=== PATIENT | female | born 1960 | race Caucasian/White ===

== ENCOUNTER → 2018-04-24 13:07 | Outpatient (CLI) | payer OTHER, SELFPAY ==
[2018-04-24 13:51] LABS: Anion Gap 9 (5-15); BUN 14 mg/dL (7-18); BUN/Creat Ratio 14.3 RATIO (10-20); Calcium,Total 9.2 mg/dL (8.5-10.1); Chloride 105 mmol/L (98-107); Cholesterol 238 mg/dL (200); Creatinine, Serum 0.98 mg/dL (0.55-1.02); EST Glomerular Filtration Rate 62 mL/min (>60); Est Glom Filt Rate - Afr Amer 75 mL/min (>60); Glucose 97 mg/dL (74-106); High Density Lipoprotein 49 mg/dL; Potassium 4.2 mmol/L (3.5-5.1); Sodium Level 142 mmol/L (136-145); Triglycerides 224 mg/dL; Very Low Density Lipoprotein 45 mg/dL (5-40)
== END ==
PROVIDERS: Family Provider Family Medicine; PCP Family Medicine; Referring Provider Family Medicine; Visit Provider Family Medicine
DX: Z00.00 Encounter for general adult medical examination without abnormal findings (principal)
CPT/HCPCS: 36415; 80048; 80061

== ENCOUNTER → 2018-06-23 15:48 | Outpatient (CLI) | payer OTHER, SELFPAY ==
[2018-05-09 16:37] VITALS: BMI 32.0
--- NOTE | 2018-06-23 15:49 | BI_ITS ---
MAMMOGRAPHY - BILATERAL SCREENING REASON FOR EXAM: Female, 57 years old. Routine annual screening examination. PERTINENT HISTORY: Non-contributory. TECHNIQUE: Digital bilateral breast mala (3D mammographic acquisition) in the CC and MLO projections. 2-D mediolateral oblique (MLO) and craniocaudad (CC) views of both breasts were obtained. CAD: Full Field Digital Mammography with Computer Added Detection was performed. COMPARISON: Comparison is made with prior examination dated August 04, 2010. FINDINGS: Breast Composition: There are scattered areas of fibroglandular density. There are no dominant masses or suspicious calcifications. Stable benign-appearing bilateral axillary lymph nodes. Stable 4 mm well-defined nodule in the upper lateral portion of the left breast. Correlation with ultrasound is recommended for further evaluation. No other significant abnormalities are identified. There has been no significant change since the prior study. BI/SCREENING MAMM (CAD), BILAT IMPRESSION: Stable bilateral screening mammogram. Ultrasound of the left breast is recommended to assess the 4 mm well-defined nodule in the upper lateral portion of the left breast. ASSESSMENT CATEGORY: BIRADS Category 0: Incomplete. Need additional imaging evaluation. A letter regarding these results will be sent to the patient by the facility within 30 days. Approximately 10% of breast cancers are not detected by mammography. A normal mammogram should not delay biopsy of a clinically suspicious abnormality. [id number] Electronically Signed: Luis Antonio Cochran MD at 12:32 EST Tel [phone], Service support ,
== END ==
PROVIDERS: Family Provider Family Medicine; PCP Family Medicine; Referring Provider Family Medicine; Visit Provider Family Medicine
DX: Z12.31 Encounter for screening mammogram for malignant neoplasm of breast (principal)
CPT/HCPCS: 77063; 77067

== ENCOUNTER → 2018-06-30 13:55 | Outpatient (CLI) | payer OTHER, SELFPAY ==
[2018-05-09 16:37] VITALS: BMI 32.0
--- NOTE | 2018-06-30 13:58 | US_ITS ---
STUDY: ULTRASOUND BREAST - LEFT REASON FOR EXAM: Female, 57 years old. Abnormal screening mammogram. TECHNIQUE: Axial and longitudinal images of the LEFT breast were performed with a high resolution ultrasound transducer. COMPARISON: Comparison is made with prior mammogram dated June 23, 2018. FINDINGS: LEFT Breast: The mammographic abnormality corresponds to a 4 mm x 3 mm x 2 mm cyst at the 2:00 position of the breast at 7 cm from the nipple. US/Breast Limited Unilateral IMPRESSION: The mammographic abnormality corresponds to a 4 mm x 2 mm x 2 mm cyst at the 2:00 position of the breast at 7 cm from the nipple. ASSESSMENT CATEGORY: BIRADS Category 2: Benign. A letter regarding these results will be sent to the patient by the facility within 30 days. Electronically Signed: Luis Antonio Cochran MD at 14:58 EST Tel [phone], Service support ,
--- OUTSIDE RECORDS SUMMARY | 2018-09-02 01:59 | XMS RPT_ITS | Clinical Summary ---
:1960 Author Organization [facility] Address [address] [place] [id number] Phone Care Team Providers Name Role Phone Luke MCBRIDE, Marissa Solis Unavailable Unavailable Conditions or Problems Problem Name Problem Onset Status Entry Provider Comment Standard Annotate Code Date Date Description Diverticulitis 963329381 Active Marissa Solis Diverticulitis (SNOMED 11/27 11/[address]) LAMINATOR PREFORMS Medications Medication Instructions Start Stop Generic Name NDC Provider Date Date CIPROFLOXACIN Take 1 tablet CIPROFLOXACIN 09565927695 Tyler D HCL 750 MG TABS every 12 hours HCL Brayan YANEZ METRONIDAZOLE 1 tablet every / METRONIDAZOLE [id number] Tyler D 500 MG TABS 6 hours Brayan YANEZ EFFEXOR XR as directed / VENLAFAXINE HCL [id number] Marissa N [id number] 20 [id number] Luke LAMINATOR PREFORMS PROTONIX TBEC as directed / PANTOPRAZOLE [id number] Marissa N 20 SODIUM TBEC Luke LAMINATOR PREFORMS B COMPLEX PLUS as directed B COMPLEX-FOLIC [id number] Marissa N TABS 20 ACID Luke LAMINATOR PREFORMS CINNAMON CAPS as directed / CINNAMON CAPS [id number] Marissa N 20 Luke LAMINATOR PREFORMS MAGNESIUM 27 as directed / MAGNESIUM [id number] Marissa N TABS 20 GLUCONATE TABS Luke LAMINATOR PREFORMS Medications Administered No information available. Allergies, Adverse Reactions, Alerts Observed no known allergies at Results Date Name Value Unit Range Flag Description Office Visit: UC: diverticulitis flare MEDS REVIEW Done Documentation of current medications (procedure) FALLRSKASSES No Fall risk assessment SMOK STATUS Never smoker Tobacco use [facility] Plan of Care Type Date Detail Appointment 05:00 PM Tyler YANEZ, [facility], [address], [place], [address], Patient education DIVERTICULITIS Procedures No information available. Vital Signs Date Name Value Unit Description BMI (Body Mass Index) 32.54 kg/m2 Body Mass Index [Ratio] Body Temperature 98.7 [degF] temperature E&M BP Diastolic 80 mm[Hg] blood pressure, diastolic - 8462-4 BP Systolic 138 mm[Hg] blood pressure, systolic - 8480-6 Heart Rate 98 /min pulse rate E&M - 8867-4 Height 66 [in_us] height E&M - 8302-2 O2 % BldC Oximetry 96 % oxygen saturation, oximetry Respiratory Rate 12 /min respiratory rate E&M - 9279-1 Weight Measured 201.6 [lb_av] weight E&M - 3141-9
--- OUTSIDE RECORDS SUMMARY | 2018-09-02 01:59 | XMS RPT_ITS ---
:1960 Author Organization OHIP Care Team Providers Name Role Phone Clarence Kirkpatrick Attending Unavailable Brown, Clarence Referring Unavailable Brown, Clarence Primary Care Unavailable Brown, Clarence Attending Unavailable Brown, Clarence Referring Unavailable Brown, Clarence Primary Care Unavailable Philippe August Attending Unavailable Brown, Clarence Attending Unavailable Brown, Clarence Referring Unavailable Brown, Clarence Attending Unavailable Brown, Clarence Referring Unavailable Brown, Clarence Primary Care Unavailable Eunice العلي Attending Unavailable Brown, Clarence Referring Unavailable PROBLEMS PROBLEMS DATE TYPE CONDITION / CODE ATTENDING STATUS SOURCE 05/09/2018 Unknown J01.10 - Acute Makenna [facility], [facility] unspecified / Repository J01.10(ICD-10) 04/22/2018 Unknown Z00.00 - Clarence Kirkpatrick Active Shai Encounter for [facility] medical Repository examination without abnormal findings / Z00.00(ICD-10) PROCEDURES PROCEDURES No Procedure Records FoundRESULTS RESULTS BREAST LIMITED Observed: 06/30/2018 Status: F Source: SHAI UNILATERAL 1:58 PM [facility] REPOSITORY [facility] Imaging Services [address] [place] [address] Breast Limited Unilateral MR#: [id number] Acct: [id number] Name: TRACIE BATISTA Rep #: [id number] : 1960 F 57 From: Luis Antonio Cochran MD PCP: Clarence Kirkpatrick DO Status: REG CLI Study: Breast Limited Unilateral Date of Exam: 06/30/18 Exam# [id number] Ordering Dr: Clarence Kirkpatrick DO STUDY: ULTRASOUND BREAST - LEFT REASON FOR EXAM: Female, 57 years old. Abnormal screening mammogram. TECHNIQUE: Axial and longitudinal images of the LEFT breast were performed with a high resolution ultrasound transducer. COMPARISON: Comparison is made with prior mammogram dated June 23, 2018. FINDINGS: LEFT Breast: The mammographic abnormality corresponds to a 4 mm x 3 mm x 2 mm cyst at the 2:00 position of the breast at 7 cm from the nipple. US/Breast Limited Unilateral IMPRESSION: The mammographic abnormality corresponds to a 4 mm x 2 mm x 2 mm cyst at the 2:00 position of the breast at 7 cm from the nipple. ASSESSMENT CATEGORY: BIRADS Category 2: Benign. A letter regarding these results will be sent to the patient by the facility within 30 days. Electronically Signed: Luis Antonio Cochran MD at 14:58 EST Tel [phone], Service support , CC: Clarence Kirkpatrick DO [employer] Supervisor: Signed SCREENING MAMM (CAD), Observed: 06/23/2018 Status: F Source: SHAI BILAT 3:[address] [facility] REPOSITORY [facility] Imaging Services [address] [place] [address] SCREENING MAMM (CAD), BILAT MR#: [id number] Acct: [id number] Name: TRACIE BATISTA Rep #: [id number] : 1960 F 57 From: Luis Antonio Cochran MD PCP: Clarence Kirkpatrick DO Status: REG CLI Study: SCREENING MAMM (CAD), BILAT Date of Exam: 06/23/18 Exam# [id number] Ordering Dr: Clarence Kirkpatrick DO MAMMOGRAPHY - BILATERAL SCREENING REASON FOR EXAM: Female, 57 years old. Routine annual screening examination. PERTINENT HISTORY: Non-contributory. TECHNIQUE: Digital bilateral breast mala (3D mammographic acquisition) in the CC and MLO projections. 2-D mediolateral oblique (MLO) and craniocaudad (CC) views of both breasts were obtained. CAD: Full Field Digital Mammography with Computer Added Detection was performed. COMPARISON: Comparison is made with prior examination dated August 04, 2010. FINDINGS: Breast Composition: There are scattered areas of fibroglandular density. There are no dominant masses or suspicious calcifications. Stable benign-appearing bilateral axillary lymph nodes. Stable 4 mm well-defined nodule in the upper lateral portion of the left breast. Correlation with ultrasound is recommended for further evaluation. No other significant abnormalities are identified. There has been no significant change since the prior study. BI/SCREENING MAMM (CAD), BILAT IMPRESSION: Stable bilateral screening mammogram. Ultrasound of the left breast is recommended to assess the 4 mm well-defined nodule in the upper lateral portion of the left breast. ASSESSMENT CATEGORY: BIRADS Category 0: Incomplete. Need additional imaging evaluation. A letter regarding these results will be sent to the patient by the facility within 30 days. Approximately 10% of breast cancers are not detected by mammography. A normal mammogram should not delay biopsy of a clinically suspicious abnormality. [id number] Electronically Signed: Luis Antonio Cochran MD at 12:32 EST Tel [phone], Service support , CC: Clarence Kirkpatrick DO [employer] Supervisor: Signed URGENT CARE VISIT Observed: 05/09/2018 Status: F Source: [place] REPORT 4:[address] 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 Required: No Accompanied by: Self Is patient in pain?: No Allergies No Known Allergies Allergy (Unverified 05/09/18 16:38) Medications magnesium 200 mg tablet 200 mg PO QDAY 06/26/17 [History Confirmed 04/22/18] pantoprazole 40 mg tablet,delayed release PO 30 Days #60 06/26/17 [History Confirmed 04/22/18] tumeric PO 04/22/18 [History Confirmed 04/22/18] venlafaxine ER 150 mg capsule,extended release 24 hr 150 mg PO DAILY #90 cap 05/06/18 [Rx] PFSH Medical History Diverticulitis (Acute) Anxiety and depression (Acute) Back pain (Acute) Acid reflux (Acute) Knee pain (Acute) Hay fever (Acute) Surgical History Hx of appendectomy (Acute) Family History Mother Osteoporosis Cancer skin, basal cell Grandmother Diabetes Social History Smoking Status: Never smoker alcohol intake: never substance use type: does not use what type of physical activity do you participate in: none HPI HPI Chief Complaint: Sinus Details: TRACIE BATISTA, is a 57 F who presents to the office today for A 2 Week history of progressive sinu symptoms that started with clear drainage and head pressure. Her drainage turned thick and yellow 5 days ago with increased headaches, frontal, and ears and not throat pain. She is taking mucinex, but the drainage is thick and difficult to cough up. No fevers, no chills , no body aches. No nausea or vomiting. Her cough however got bad last night and she feels it might be getting more into her chest. She continues to take Mucinex DM. + Nasal drainage thick/yellow. is on chemo with stage 3 pancreatic cancer and she does not want him to be exposed to anything unnecessarily. ROS Const Constitutional: Positive for change in appetite (taste is less) and headache(s); no body ache, chills, fatigue, fever(s), night sweats, weakness, frequent falls or excessive sweating Eyes Eyes: No visual disturbances, light sensitivity, eye pain or change in vision ENT ENT: Positive for ear pain (more pressure), nasal discharge and headache(s); no ear discharge, hearing loss, dizziness/vertigo, difficulty swallowing, sore throat or neck pain Resp Respiratory: Positive for cough and chest congestion (mild); no hemoptysis, shortness of breath or wheezing Cardio Cardiology: No shortness of breath, irregular heart rhythm, lightheadedness, chest pain at rest, chest pain with exertion, generalized swelling, orthopnea, palpitations or excessive sweating Gastro GI: No difficulty swallowing, abdominal pain, bloating, change in bowel habits, diarrhea, blood in stool, Black,tarry stools, nausea/dyspepsia or vomiting Genitourinary-Female: No burning urination, urinary frequency, urinary urgency, blood in urine or Vaginal Itching Musc Musculoskeletal: No joint pain, back pain, numbness, tingling or neck pain Skin Skin: No lesions, itching or rash Neuro Neurology: Positive for headache(s); no visual disturbances, numbness, tingling, abnormal speech, confusion, unsteady gait/balance, dizziness, weakness, frequent falls, loss of vision or memory loss Psych Psychiatric: Positive for change in appetite (taste is less), No confusion, No memory loss, No anxiety, No depression Endo Endocrine: No fatigue, cold intolerance, excessive sweating, flushing, heat intolerance or increased thirst/drinking Aller/Imm Allergy/Immunologic: No wheezing, itchy eyes, food intolerance, seasonal allergy symptoms or hives Jacques/Lymp Hematologic/Lymphatic: No easy bruising Exam Const General: cooperative, no acute distress Orientation: alert, oriented x3 HENMT Head: normal to inspection, normocephalic Ears: hearing grossly normal bilaterally, external ears normal, no periauricular adenopathy, EAC's normal Nose: mucous membranes and turbinates abnormal boggy and erythematous, nasal discharge purulent Face and sinus: normal facial exam, sinus tenderness (and around the eyes) frontal and maxillary Mouth: oral mucosae normal, oropharynx normal, tongue normal Teeth and gingiva: dentition normal, gingiva normal Throat: posterior oropharynx normal, postnasal drainage (lines bilaterally) Eyes General: appearance normal, both eyes and all related structures Eyelids: eyelids normal Conjunctivae: conjunctivae normal Sclera: sclerae normal Pupils: PERRL EOM: EOM intact bilaterally Direct ophthalmoscopy: normal light reflex, no photophobia, no papilledema, fundi normal bilaterally Neck Neck: normal visual inspection, full ROM, no meningeal signs, supple, no lymphadenopathy Neck mass: No Thyroid: thyroid normal Carotids: no bruits Lymphatic: no lymphadenopathy noted Chest Chest palpation AND inspection: normal inspection of the chest Resp Effort AND Inspection: normal respiratory effort, able to speak in complete sentences, symmetric chest movement, no audible wheezes, no cough, not labored, no respiratory distress Auscultation: Bilateral: Clear to Auscultation Cardio Rate: regular rate Rhythm: regular rhythm Heart Sounds: S1 normal, S2 normal GI Inspection: normal to inspection Auscultation: normal bowel sounds Palpation: soft, no hepatosplenomegaly, no pulsatile masses Musc Musculoskeletal: No joint tenderness or joint redness Skin General: no rashes or lesions noted Neuro General: alert, oriented x3, moves all extremities Cognition: normal cognition Speech: speech normal Gait: normal gait Motor: muscle tone normal throughout Sensory Exam: no sensory deficits noted Extrem General: normal to inspection Psych Appearance: grossly normal, well kempt Mental Status: mental status grossly normal Affect: normal affect Speech and Movement: speech and movement normal Attitude: cooperative Thought Process: normal Thought Content: normal Judgment: judgment good Assessment AND Plan Problems 1. Subacute frontal sinusitis J01.10 Plan Augmentin 875 bid called to [facility] pharmacy Robitussin DM Coding Level of Care Code Off vis,est,level 3 Diagnoses Subacute frontal sinusitis J01.10 Sinusitis location: frontal Chronicity: subacute 05/09/18 2647 <Electronically signed by Eunice YANEZ> Date Eunice YANEZ Cosigner Signature: Date (if applicable) CC: BASIC METABOLIC Collected: 04/24/2018 Status: F Source: [facility]AI PROFILE ([facility]) 1:[address] [facility] REPOSITORY TYPE CODE TESTS RESULT OUT OF RANGE REFERENCE UNITS LAB L501.0100 74-106 mg/dL Normal GLU 97 Result Comment: Please note revised GLUCOSE reference range effective 2017. LAB L501.1000 7-18 mg/dL Normal BUN 14 LAB L501.1100 0.55-1.02 mg/dL Normal CREAT,SERUM 0.98 Result Comment: The validity of the calculated GFR AND GFRAA in patients over 70 years has not been determined. Clinical correlation is essential. LAB L501.1110 >60 mL/min Normal EST GFR 62 Result Comment: Non- GFR Calc LAB L501.1115 >60 mL/min Normal EST GFR - AA 75 Result Comment: GFR Calc LAB L501.1300 10-20 RATIO Normal BUN/CRE 14.3 LAB L501.2200 8.5-10.1 mg/dL CA Normal 9.2 LAB L501.5300 136-145 mmol/L NA Normal 142 LAB L501.5600 3.5-5.1 mmol/L K Normal 4.2 LAB L501.5900 98-107 mmol/L CL Normal 105 LAB L501.6100 21.0-32.0 mmol/L Normal CO2 28.0 LAB L501.6200 5-15 Normal GAP 9 Performed By: #### L500.2500, L500.4100 #### [facility] [address] [place], [address] LIPID PROFILE Collected: 04/24/2018 Status: F Source: [place]AI 1:[address] [facility] REPOSITORY TYPE CODE TESTS RESULT OUT OF RANGE REFERENCE UNITS LAB L501.4900 200 mg/dL High CHOL 238 Result Comment: <200 mg/dL Desirable 200-240 mg/dL Borderline >240 mg/dL High Risk LAB L501.5000 mg/dL High TRIG 224 Result Comment: The drugs N-Acetylcysteine and Metamizole may falsely depress this assay. Serum Triglycerides Reference Interval Normal <150 mg/dL Borderline high 150 - 199 mg/dL High 200 - 499 mg/dL Very High > or = 500 mg/dL LAB L501.6400 mg/dL Normal HDL 49 Result Comment: The drugs N-Acetylcysteine and Metamizole may falsely depress this assay. Reference Range HDL <40 mg/dL Low HDL Cholesterol HDL >or= 60 mg/dL High HDL Cholesterol LAB L501.6500 0-130 mg/dL High LDL 144 LAB L501.6600 5-40 mg/dL High VLDL 45 Performed By: #### L500.2500, L500.4100 #### [facility] [address] [place], [address] INTERNAL MEDICINE Observed: 04/22/2018 Status: F Source: SHAI OFFICE VISIT 4:[address] [facility] REPOSITORY [facility] [address] [place] [address] [place] [address] OFFICE VISIT Date of Service: 04/22/18 MR#: [id number] Acct: [id number] Name: LESTERTRACIE Rep #: [id number] : 1960 Provider: Clarence Kirkpatrick DO Age/Sex: 57/F Location: [facility] Status: Signed Intake Vital Signs04/22/18 Height 5 ft 6 in Intake Visit Reasons: REFILLS Chief Complaint: refills Is patient in pain?: No Allergies No Known Allergies Allergy (Unverified 06/26/17 14:45) Medications magnesium 200 mg tablet 200 mg PO QDAY 06/26/17 [History Confirmed 04/22/18] pantoprazole 40 mg tablet,delayed release PO 30 Days #60 06/26/17 [History Confirmed 04/22/18] tumeric PO 04/22/18 [History Confirmed 04/22/18] venlafaxine ER 150 mg capsule,extended release 24 hr 150 mg PO DAILY #90 cap 04/22/18 [Rx Confirmed 04/22/18] Post menopausal: Yes PFSH Medical History Diverticulitis (Acute) Anxiety and depression (Acute) Back pain (Acute) Acid reflux (Acute) Knee pain (Acute) Hay fever (Acute) Surgical History Hx of appendectomy (Acute) Family History Mother Osteoporosis Cancer skin, basal cell Grandmother Diabetes Social History Smoking Status: Never smoker alcohol intake: never substance use type: does not use what type of physical activity do you participate in: none HPI HPI Chief Complaint: refills Details: TRACIE BATISTA, is a 57 F who presents to the office today for refills on her medications. She is dealing with a that has stage 3 pancreatic cancer. ROS Const Constitutional: No weight change, body ache, chills, fatigue, sleep problems, fever(s), change in appetite, snoring, weakness, frequent falls, headache(s) or excessive sweating Eyes Eyes: No change in vision, eye pain, light sensitivity or blurry vision ENT ENT: No headache(s), abnormal hearing, ear pain, tinnitus, nasal congestion, sore throat or neck pain Resp Respiratory: No snoring, cough, shortness of breath or wheezing Cardio Cardiology: No excessive sweating, chest pain at rest, chest pain with exertion, shortness of breath, dyspnea on exertion, palpitations, orthopnea or lightheadedness Gastro GI: No abdominal pain, change in bowel habits, constipation, diarrhea, vomiting, nausea/dyspepsia or cramping Genitourinary-Female: No burning urination, painful urination, urinary incontinence, urinary frequency, abnormal vaginal bleeding, pelvic pain or other Musc Musculoskeletal: No neck pain, abnormal walking, joint pain, back pain, limited range of motion, numbness or tingling Skin Skin: No redness, dry skin, itching, lesions, wounds or rash Neuro Neurology: No weakness, frequent falls, headache(s), abnormal hearing, abnormal walking, numbness, tingling, abnormal speech, dizziness or memory loss Psych Psychiatric: No change in appetite, No memory loss, No anxiety, No depression, No Thoughts of harming yourself/Others Endo Endocrine: No fatigue, excessive sweating, cold intolerance, increased thirst/drinking, heat intolerance, flushing or increased hunger Aller/Imm Allergy/Immunologic: No wheezing, itchy eyes, hives or seasonal allergy symptoms Jacques/Lymp Hematologic/Lymphatic: No easy bleeding, easy bruising or enlarged lymph nodes Exam Const General: cooperative Neck Neck: normal visual inspection Neck mass: No Thyroid: thyroid normal Resp Effort AND Inspection: normal respiratory effort Auscultation: Bilateral: Clear to Auscultation Cardio Rate: regular rate Rhythm: regular rhythm Skin General: no rashes or lesions noted Neuro General: oriented x3 Cranial Nerves: CN's II-XI intact bilaterally Extrem General: no clubbing, cyanosis or edema Psych Appearance: grossly normal Mental Status: mental status grossly normal Mood: congruent mood Affect: tearful Speech and Movement: speech and movement normal Attitude: cooperative Thought Process: normal Thought Content: normal Judgment: judgment good Other: Some difficulty dealing with her husbands illness. Assessment AND Plan Problems 1. Well adult exam Z00.00 2. Anxiety and depression F41.9; F32.9 3. Diverticulitis K57.92 4. Acid reflux K21.9 Plan This patient was seen for refill on her medication. After peer to discussion with her she also has not had any kind of a well adult exam so we went ahead and ordered a mammogram and appropriate blood work. She did have a colonoscopy last year. She is dealing with her who has stage III pancreatic cancer and is very important for her to stay on her antidepressants. She has no stomach issues and really physical examination was unchanged as well as review of systems. I offered what emotional support I could for which she is dealing with told her to call if the medicine was not effective or she needed to discuss any other problems. Orders Orders: Medications New: Plan Detail Follow Up 6 Months Coding Level of Care Code Off vis,est,prev 40-64yrs Diagnoses Well adult exam Z00.00 Anxiety and depression F41.9; F32.9 Diverticulitis K57.92 Acid reflux K21.9 04/22/18 8214 <Electronically signed by Clarence Kirkpatrick DO> Date Clarence Wilsonigntomasa Signature: Date (if applicable) CC: PROGRESS Observed: 07/17/2017 Status: COMPLETED Source: [place] 6:38 PM [facility] REPOSITORY HNO ID: [id number] Author: Natalia (Electrotherapist) French Service: (none) Author Type: Nurse Practitioner Type: Progress Notes Filed: 07/17/2017 6:54 PM Note Text: HPI Tracie Batista is a 57 year old female who presents with her right eye red and irritated, and has been having yellow discharge at home. 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 Review of Systems Constitutional: Negative. Negative for chills and fever. HENT: Negative. Negative for congestion, ear pain and sinus pain. Eyes: Positive for discharge and redness. Negative for blurred vision, double vision, photophobia and pain. Respiratory: Negative. Negative for cough. Skin: Negative. BP 114/72 Pulse 84 Temp 36.5 ?C (97.7 ?F) (Tympanic) Resp 18 Wt 90.7 kg (200 lb) No past medical history on file. No past surgical history on file. ALLERGIES Review of patient's allergies indicates no known allergies. MEDICATIONS venlafaxine XR (EFFEXOR XR) 150 mg 24 hr capsule Take 150 mg by mouth once daily. No family history on file. Social History Substance Use Topics - Smoking status: Never Smoker - Smokeless tobacco: Never Used - Alcohol use Not on file Physical Exam Constitutional: She is well-developed, well-nourished, and in no distress. HENT: Head: Normocephalic. Right Ear: Tympanic membrane, external ear and ear canal normal. Left Ear: Tympanic membrane, external ear and ear canal normal. Nose: Nose normal. Mouth/Throat: Uvula is midline, oropharynx is clear and moist and mucous membranes are normal. No posterior oropharyngeal edema or posterior oropharyngeal erythema. Eyes: EOM are normal. Pupils are equal, round, and reactive to light. Right eye exhibits discharge. Left eye exhibits no discharge. Right conjunctiva is injected. Left conjunctiva is not injected. Neck: Neck supple. Cardiovascular: Normal rate, regular rhythm and normal heart sounds. No murmur heard. Pulmonary/Chest: Effort normal and breath sounds normal. No respiratory distress. She has no wheezes. Lymphadenopathy: She has no cervical adenopathy. Neurological: She is alert. Skin: Skin is warm and dry. No rash noted. Nursing note and vitals reviewed. ASSESSMENT/PLAN: 1. Bacterial conjunctivitis - ICD9: 372.39, 041.9, ICD10: H10.9 - see medication orders - course and contagiousness issues discussed, including hand washing. - Instructed to call if high fever, development of periorbital redness or swelling, eye pain, visual changes, concerns or if symptoms persist. - POLYMYXIN B SULFATE 10,000 UNIT-TRIMETHOPRIM 1 MG/ML EYE DROPS - Follow-up with your PCP in 3-5 days if symptoms have not improved or sooner if symptoms worsen - Discussed red flags and need for immediate medical evaluation if any occur. - Discussed supportive care treatment with fluids, rest and analgesia. - Discussed expected course of illness Natalia Braswell CNP ALLERGIES ALLERGIES DATE TYPE / CODE NAME / CODE REACTION SEVERITY SOURCE 05/09/2018 Drug No Known Unknown [facility] Allergy/4160 Allergies/F00 Hospital 75296(SNOMED 9197738(RXNOR Repository CT) M) ENCOUNTERS ENCOUNTERS ADMIT/DISCHARGE ACCOUNT ADMITTING ENCOUNTER LOCATION SOURCE NUMBER CLASS 06/30/2018 [id number] [facility] ing:OPUS Repository 06/23/[id number] [facility] ing:OPBI Repository 05/09/2018/05/09/20 [id number] Ambulatory BMSBuilding:B [place] [address] Repository 04/24/[id number] [facility] ing:PAVLAB Repository 04/22/2018/04/22/20 [id number] Amb[place] BMS[facility] [facility] [place] [place] 01/01/2018/01/02/20 [id number] Ambulatory BMSBuilding:B [place] [address] [facility] Repository 07/17/2017/07/18/19 [id number] Ambulatory [address] Repository PAYERS PAYERS ENCOUNTER GUARANTOR PAYER SUBSCRIBER SOURCE 06/30/2018 TRACIE Silva Primary TRACIE L [place] [id number] Insurance:MEDICAL HIGNIGHTDOB: [facility] [id number] Number: Repository [id number]: 330 [id number] [phone] (HP) Date:[id number] [address] [address]GG: 06/30/2018 Secondary NOT GIVENUNK [place] Insurance:SELF PAY [facility] Number: Effective Repository Date:2018-06-27 06/23/2018 TRACIE Silva Primary TRACIE L [place] [id number] Insurance:MEDICAL HIGNIGHTDOB: [facility] [id number] Number: Repository [id number]: 330 [id number] [phone] (HP) Date:[id number] [address] [address]DU: 06/23/2018 Secondary NOT GIVENUNK [place] Insurance:SELF PAY [facility] Number: Effective Repository Date:2018-04-24 05/09/2018 TRACIE L Primary TRACIE L [place] [id number] Insurance:MEDICAL HIGNIGHTDOB: [facility] [id number] Repository [id number]: 330 [id number] [phone] (HP) Date:[id number] [address] [address]SK: 05/09/2018 Secondary NOT GIVENUNK [place] Insurance:SELF PAY [facility] Number: Effective Repository Date:2018-05-09 04/24/2018 TRACIE L Primary TRACIE L [place] [id number] Insurance:MEDICAL HIGNIGHTDOB: [facility] [id number] Number: Repository [id number]: 330 [id number] [phone] (HP) Date:5664-88-57[address] [place], [place] [id number]: 04/24/2018 Secondary NOT GIVENUNK [place] Insurance:SELF PAY [facility] Number: Effective Repository Date:2018-04-24 04/22/2018 TRACIE Primary TRACIE Gan [id number] Insurance:MEDICAL HIGNIGHTDOB: [id number] Repository [place] [address]Udr: [id number] Date:[id number] [address] () [address], [place] [address]LT: 04/22/2018 Secondary NOT GIVENUNK [place] Insurance:SELF PAY [facility] Number: Effective Repository Date:2018-04-15 01/01/2018 TARCIE Primary TRACIE Gna [id number] Insurance:MEDICAL HIGNIGHTDOB: [id number] Number: Repository [place] [id number]: [id number] Date:[id number] [address] () [address], [place] [address]KG: 01/01/2018 Secondary NOT GIVENUNK [place] Insurance:SELF PAY [facility] Number: Effective Repository Date:2018-01-01
--- OUTSIDE RECORDS SUMMARY | 2018-09-02 01:59 | XMS RPT_ITS | Clinical Summary ---
:1960 Author Organization [facility] Address [address] [place] [id number] Phone Care Team Providers Name Role Phone Luke MCBRIDE, Marissa Solis Unavailable Unavailable Conditions or Problems Problem Name Problem Onset Status Entry Provider Comment Standard Annotate Code Date Date Description Diverticulitis 620196356 Active Marissa Solis Diverticulitis (SNOMED 11/27 11/[address]) NURSE CHARGE RN Medications Medication Instructions Start Stop Generic Name NDC Provider Date Date CIPROFLOXACIN Take 1 tablet CIPROFLOXACIN 43703864840 Tyler D HCL 750 MG TABS every 12 hours HCL Brayan YANEZ METRONIDAZOLE 1 tablet every / METRONIDAZOLE [id number] Tyler D 500 MG TABS 6 hours Brayan YANEZ EFFEXOR XR as directed / VENLAFAXINE HCL [id number] Marissa N [id number] 20 [id number] Luke NURSE CHARGE RN PROTONIX TBEC as directed / PANTOPRAZOLE [id number] Marissa N 20 SODIUM TBEC Luke NURSE CHARGE RN B COMPLEX PLUS as directed B COMPLEX-FOLIC [id number] Marissa N TABS 20 ACID Luke NURSE CHARGE RN CINNAMON CAPS as directed / CINNAMON CAPS [id number] Marissa N 20 Luke NURSE CHARGE RN MAGNESIUM 27 as directed / MAGNESIUM [id number] Marissa N TABS 20 GLUCONATE TABS Luke NURSE CHARGE RN Medications Administered No information available. Allergies, Adverse Reactions, Alerts Observed no known allergies at Results Date Name Value Unit Range Flag Description Office Visit: UC: diverticulitis flare MEDS REVIEW Done Documentation of current medications (procedure) FALLRSKASSES No Fall risk assessment SMOK STATUS Never smoker Tobacco use [facility] Plan of Care Type Date Detail Patient education DIVERTICULITIS Procedures No information available. [...]
== END ==
PROVIDERS: Family Provider Family Medicine; PCP Family Medicine; Referring Provider Family Medicine; Visit Provider Family Medicine
DX: N63.20 Unspecified lump in the left breast, unspecified quadrant (principal)
CPT/HCPCS: 76642

== ENCOUNTER → 2019-05-03 17:48 | Outpatient (CLI) | payer OTHER, SELFPAY ==
[2019-05-01 17:14] VITALS: BMI 32.0
[2019-05-03 18:01] LABS: Color, Urine Yellow (Yellow); Glucose, Dipstick Normal (Normal); Ketone-Dipstick 5 mg/dl (Negative); Leukocyte Esterase-Dipstick 500 /ul (Negative); Mucous, Urine 0 SEEN /hpf (<or=2+); Nitrite-Dipstick Negative (Negative); Occult Blood-Urine 250 /ul (Negative); Protein-Dipstick 30 mg/dl (Negative); Urine Bilirubin Dipstick Negative (Negative); Urine Clarity Cloudy (Clear); Urine Urobilinogen Normal (Normal)
[2019-05-03 18:11] LABS: Bacteria RARE /hpf (None Seen); Red Blood Cells-Urine 10-25 SEEN /hpf (0-5); Squamous Epithelial Cells - UA 0-5 SEEN /hpf (5-10); White Blood Cells >100 SEEN /hpf (0-5)
== END ==
LOC: BMS.EMR 17:48 → LABSPEC 05-04 14:54
PROVIDERS: Family Provider Family Medicine; PCP Family Medicine; Visit Provider Physician Assistant Surgical
DX: R30.0 Dysuria (principal)
CPT/HCPCS: 81001; 87086; 87088

== ENCOUNTER → 2019-05-19 16:00 | Outpatient (CLI) | payer OTHER, SELFPAY ==
[2019-05-14 15:59] VITALS: BMI 32.8
--- NOTE | 2019-05-19 16:16 | EKG12_ITS ---
Test Reason : PREOP Blood Pressure : / mmHG Vent. Rate : 071 BPM Atrial Rate : 071 BPM P-R Int : 132 ms QRS Dur : 076 ms QT Int : 398 ms P-R-T Axes : 028 037 044 degrees QTc Int : 432 ms Normal sinus rhythm Normal ECG Confirmed by ODETTE MONCADA, DM ([id number]), news editor ROBERT ROMERO ([id number]) on 05/20/2019 11:24:39 AM Referred By: Frederick Raphael Confirmed By:DM PINO MD
[2019-05-19 16:33] LABS: Hematocrit 38.7 % (37-47); Hemoglobin 12.7 g/dL (12.0-15.0); Mean Corp Hgb Conc 32.8 g/dL (32-36); Mean Corpuscular Hgb 30.2 pg (27.0-32.0); Mean Corpuscular Volume 91.9 fL (81-99); Mean Platelet Vol. 9.2 fl (6.2-12.0); Platelet Count 234 K/mm3 (150-450); RBC Distribution Width CV 12.8 % (11.6-14.6); RBC Distribution Width SD 42.5 fl (35.1-43.9); Red Blood Count 4.21 M/mm3 (4.2-5.4); White Blood Count 4.9 K/mm3 (4.4-11.0)
[2019-05-19 16:51] LABS: Anion Gap 5 (5-15); BUN 15 mg/dL (7-18); BUN/Creat Ratio 16.1 RATIO (10-20); Calcium,Total 9.2 mg/dL (8.5-10.1); Chloride 108 mmol/L (98-107); Creatinine, Serum 0.93 mg/dL (0.55-1.02); EST Glomerular Filtration Rate 65 mL/min (>60); Est Glom Filt Rate - Afr Amer 79 mL/min (>60); Glucose 104 mg/dL (74-106); Potassium 4.5 mmol/L (3.5-5.1); Sodium Level 142 mmol/L (136-145)
== END ==
PROVIDERS: Family Provider Family Medicine; PCP Family Medicine; Referring Provider Physician Assistant; Visit Provider Physician Assistant
DX: Z01.810 Encounter for preprocedural cardiovascular examination (principal); Z01.818 Encounter for other preprocedural examination
CPT/HCPCS: 36415; 80048; 85027; 93005

== ENCOUNTER → 2020-09-21 16:09 | Outpatient (CLI) | payer OTHER, SELFPAY ==
[2020-09-14 16:04] VITALS: BMI 31.8
--- NOTE | 2020-09-21 16:13 | BI_ITS ---
MAMMOGRAPHY - BILATERAL SCREENING REASON FOR EXAM: Female, 60 years old. Routine annual screening examination. PERTINENT HISTORY: Non-contributory. TECHNIQUE: Digital bilateral breast gretchen (3D mammographic acquisition) in the CC and MLO projections. 2-D mediolateral oblique (MLO) and craniocaudad (CC) views of both breasts were obtained. CAD: Full Field Digital Mammography with Computer Added Detection was performed. COMPARISON: Comparison is made with prior study dated 02/21/2019. FINDINGS: Breast Composition: There are scattered areas of fibroglandular density. There are no dominant masses or suspicious calcifications. The previously seen well-defined nodule in the upper lateral aspect of the left breast has decreased in size. This was demonstrated to be a small cyst on prior sonogram of the left breast. No other significant abnormalities are identified. BI/SCRN MAMM (CAD)W/GRETCHEN BILAT IMPRESSION: Stable bilateral screening mammogram. Yearly follow-up mammogram recommended. (A) ASSESSMENT CATEGORY: BIRADS Category 2: Benign. A letter regarding these results will be sent to the patient by the facility within 30 days. Approximately 10% of breast cancers are not detected by mammography. A normal mammogram should not delay biopsy of a clinically suspicious abnormality. [id number] Electronically Signed: Luis Antonio Cochran MD at 8:35 EDT , Service support ,
== END ==
PROVIDERS: PCP Family Medicine; Referring Provider Family Medicine; Visit Provider Family Medicine
DX: Z12.31 Encounter for screening mammogram for malignant neoplasm of breast (principal)
CPT/HCPCS: 77063; 77067

== ENCOUNTER → 2021-02-18 15:42 | Outpatient (CLI) | payer OTHER, SELFPAY ==
[2021-02-18 15:45] LABS: Bacteria 0 SEEN /hpf (None Seen); Mucous, Urine 0 SEEN /hpf (<or=2+); Red Blood Cells-Urine 0 SEEN /hpf (0-5)
[2021-02-18 15:47] LABS: Color, Urine Yellow (Yellow); Glucose, Dipstick Normal (Normal); Ketone-Dipstick Negative (Negative); Leukocyte Esterase-Dipstick 100 /ul (Negative); Nitrite-Dipstick Negative (Negative); Occult Blood-Urine 10 /ul (Negative); Protein-Dipstick Negative (Negative); Urine Bilirubin Dipstick Negative (Negative); Urine Clarity Clear (Clear); Urine Urobilinogen Normal (Normal)
[2021-02-18 15:55] LABS: Squamous Epithelial Cells - UA 0-5 SEEN /hpf (5-10); White Blood Cells 0-5 SEEN /hpf (0-5)
== END ==
PROVIDERS: PCP Family Medicine; Referring Provider Nurse Practitioner Family; Visit Provider Nurse Practitioner Family
DX: R30.0 Dysuria (principal)
CPT/HCPCS: 81001; 87086; 87088

== ENCOUNTER → 2021-03-22 15:57 | Outpatient (CLI) | payer OTHER, SELFPAY ==
[2021-03-22 17:27] LABS: ALB/GLOB Ratio 0.9 RATIO (0.9-2.4); AST(SGOT) 18 U/L (15-37); Alanine Aminotransfer ALT/SGPT 32 U/L (13-56); Albumin, Serum 3.4 g/dL (3.2-5.0); Alkaline Phosphatase 115 U/L (45-117); Anion Gap 3 (5-15); BUN 14 mg/dL (7-18); BUN/Creat Ratio 15.7 RATIO (10-20); Calcium,Total 9.1 mg/dL (8.5-10.1); Chloride 106 mmol/L (98-107); Creatinine, Serum 0.89 mg/dL (0.55-1.02); EST Glomerular Filtration Rate 68 mL/min (>60); Est Glom Filt Rate - Afr Amer 83 mL/min (>60); Globulin 3.6 g/dL (2.2-4.2); Glucose 150 mg/dL (74-106); Potassium 4.3 mmol/L (3.5-5.1); Sodium Level 139 mmol/L (136-145); Thyroid Stim Hormone (TSH) 1.02 uIU/mL (0.358-3.74)
== END ==
PROVIDERS: PCP Family Medicine; Referring Provider Family Medicine; Visit Provider Family Medicine
DX: R23.2 Flushing (principal)
CPT/HCPCS: 36415; 80053; 84443

== ENCOUNTER → 2021-05-31 14:35 | Outpatient (CLI) | payer OTHER, SELFPAY | PROVIDERS: PCP Family Medicine; Referring Provider Physician Assistant; Visit Provider Physician Assistant | DX: U07.1 COVID-19 (principal) | CPT/HCPCS: 87635; U0005; U0003 ==

== ENCOUNTER 2021-06-01 15:01 | Outpatient (CLI) | payer OTHER, SELFPAY ==
[2021-06-01 15:15] VITALS: BP 116/79; PULSE 81; RESP 18; TEMP 36.7; O2SAT 100; BMI 31.4
[2021-06-01] MEDS: 0.9% Saline Lock 10 ML Syringe IV (15:24)
[2021-06-01 15:52] VITALS: BP 108/58; PULSE 73; RESP 16; TEMP 37.2; O2SAT 96
[2021-06-01 16:49] VITALS: BP 113/67; PULSE 74; RESP 16; TEMP 36.9; O2SAT 96
== END 2021-06-01 17:00 | disposition home or self-care (01) ==
LOC: MS3OUT 15:01 → MS3 15:02
PROVIDERS: PCP Family Medicine; Referring Provider Nurse Practitioner Acute Care; Visit Provider Nurse Practitioner Acute Care
DX: Z23 Encounter for immunization (principal); U07.1 COVID-19
CPT/HCPCS: J7050; M0245; Q0245; A4216

== ENCOUNTER → 2021-10-12 | Outpatient (CLI) | payer OTHER, SELFPAY ==
--- NOTE | 2021-10-12 16:07 | BI_ITS ---
MAMMOGRAPHY - BILATERAL SCREENING REASON FOR EXAM: Female, 61 years old. Routine annual screening examination. PERTINENT HISTORY: Non-contributory. TECHNIQUE: Digital bilateral breast gretchen (3D mammographic acquisition) in the CC and MLO projections. 2-D mediolateral oblique (MLO) and craniocaudad (CC) views of both breasts were obtained. CAD: Full Field Digital Mammography with Computer Added Detection was performed. COMPARISON: Comparison is made with prior study dated 09/21/2020 and 06/23/2018. FINDINGS: Breast Composition: There are scattered areas of fibroglandular density. There are no dominant masses or suspicious calcifications. Stable 1.5 mm well-defined nodule in the upper lateral aspect of the left breast. Prior ultrasound demonstrated this to be a small cyst. Stable fat-containing bilateral axillary lymph nodes. No other significant abnormalities are identified. There has been no significant change since the prior study. BI/SCRN MAMM (CAD)W/GRETCHEN BILAT IMPRESSION: Stable bilateral screening mammogram. Yearly follow-up mammogram recommended. (A) ASSESSMENT CATEGORY: BIRADS Category 2: Benign. A letter regarding these results will be sent to the patient by the facility within 30 days. Approximately 10% of breast cancers are not detected by mammography. A normal mammogram should not delay biopsy of a clinically suspicious abnormality. [id number] Electronically Signed: Luis Antonio Cochran MD at 8:39 EDT ,
== END | disposition home or self-care (01) ==
LOC: OPBI 16:06
PROVIDERS: PCP Family Medicine; Visit Provider Family Medicine
DX: Z12.31 Encounter for screening mammogram for malignant neoplasm of breast (principal)
CPT/HCPCS: 77063; 77067

== ENCOUNTER → 2022-11-13 | Outpatient (CLI) | payer OTHER, SELFPAY ==
[2022-11-16 17:07] LABS: HPV APTIMA, High Risk Negative (Negative)
== END | disposition home or self-care (01) ==
LOC: LABSPEC 16:23
PROVIDERS: PCP Family Medicine; Visit Provider Nurse Practitioner Women's Health
DX: Z01.419 Encounter for gynecological examination (general) (routine) without abnormal findings (principal)
CPT/HCPCS: 87624; 88175; G0145

== ENCOUNTER → 2022-11-27 | Outpatient (CLI) | payer OTHER, SELFPAY ==
--- NOTE | 2022-11-27 14:59 | BI_ITS ---
MAMMOGRAPHY - BILATERAL SCREENING REASON FOR EXAM: Female, 62 years old. Routine annual screening examination. PERTINENT HISTORY: Non-contributory. TECHNIQUE: Digital bilateral breast gretchen (3D mammographic acquisition) in the CC and MLO projections. 2-D mediolateral oblique (MLO) and craniocaudad (CC) views of both breasts were obtained. CAD: Full Field Digital Mammography with Computer Added Detection was performed. COMPARISON: Mammogram from 10/12/2021, 09/21/2020. Left breast ultrasound from 06/30/2018. FINDINGS: Breast Composition: There are scattered areas of fibroglandular density. There are no suspicious masses or suspicious calcifications. Stable 0.2 cm left upper outer breast round well-circumscribed mass, previous characterized as a benign cyst. No other significant abnormalities are identified. There has been no significant change since the prior study. BI/SCRN MAMM (CAD)W/GRETCHEN BILAT IMPRESSION: Stable bilateral screening mammogram. Yearly follow-up mammogram recommended. (A) ASSESSMENT CATEGORY: BIRADS Category 2: Benign. A letter regarding these results will be sent to the patient by the facility within 30 days. Approximately 10% of breast cancers are not detected by mammography. A normal mammogram should not delay biopsy of a clinically suspicious abnormality. Electronically Signed: Wilmer Pillai DO at 8:20 EDT ,
== END | disposition home or self-care (01) ==
LOC: OPBI 14:57
PROVIDERS: PCP Family Medicine; Referring Provider Nurse Practitioner Women's Health; Visit Provider Nurse Practitioner Women's Health
DX: Z12.31 Encounter for screening mammogram for malignant neoplasm of breast (principal)
CPT/HCPCS: 77063; 77067

== ENCOUNTER → 2023-05-22 | Outpatient (CLI) | payer OTHER, SELFPAY ==
[2023-05-22 17:03] LABS: ALB/GLOB Ratio 1.1 RATIO (0.9-2.4); AST(SGOT) 13 U/L (15-37); Alanine Aminotransfer ALT/SGPT 21 U/L (13-56); Albumin, Serum 3.6 g/dL (3.2-5.0); Alkaline Phosphatase 99 U/L (45-117); Anion Gap 3 (5-15); BUN 18 mg/dL (7-18); BUN/Creat Ratio 21.4 RATIO (10-20); Calcium,Total 9.2 mg/dL (8.5-10.1); Chloride 111 mmol/L (98-107); Creatinine, Serum 0.84 mg/dL (0.55-1.02); EST Glomerular Filtration Rate 73 mL/min (>60); Est Glom Filt Rate - Afr Amer 88 mL/min (>60); Globulin 3.3 g/dL (2.2-4.2); Glucose 126 mg/dL (74-106); Potassium 3.9 mmol/L (3.5-5.1); Protein, Total 6.9 g/dL (6.4-8.2); Sodium Level 143 mmol/L (136-145)
== END | disposition home or self-care (01) ==
LOC: BIMLAB 15:59
PROVIDERS: PCP Family Medicine; Referring Provider Family Medicine; Visit Provider Family Medicine
DX: R73.09 Other abnormal glucose (principal)
CPT/HCPCS: 36415; 80053

== ENCOUNTER → 2024-01-13 | Outpatient (CLI) | payer OTHER, SELFPAY ==
[2024-01-13 14:07] LABS: Color, Urine Yellow (Yellow); Glucose, Dipstick Normal (Normal); Ketone-Dipstick Negative (Negative); Leukocyte Esterase-Dipstick 25 /ul (Negative); Nitrite-Dipstick Negative (Negative); Occult Blood-Urine 25 /ul (Negative); Protein-Dipstick 15 mg/dl (Negative); Urine Bilirubin Dipstick Negative (Negative); Urine Clarity Sl. Cloudy (Clear); Urine Urobilinogen 1 mg/dl (Normal)
[2024-01-13 14:16] LABS: Mucous, Urine 1+ /hpf (<or=2+); Squamous Epithelial Cells - UA 0-5 SEEN /hpf (5-10)
[2024-01-13 14:17] LABS: Bacteria 1+ /hpf (None Seen); White Blood Cells 0-5 SEEN /hpf (0-5)
[2024-01-13 14:19] LABS: Red Blood Cells-Urine 0-5 SEEN /hpf (0-5)
== END | disposition home or self-care (01) ==
LOC: LABSPEC 12:56
PROVIDERS: PCP Family Medicine; Referring Provider Physician Assistant; Visit Provider Physician Assistant
DX: R30.0 Dysuria (principal)
CPT/HCPCS: 81001; 87077; 87086; 87088

== ENCOUNTER → 2024-03-27 | Outpatient (CLI) | payer OTHER, SELFPAY ==
--- NOTE | 2024-03-27 10:52 | BI_ITS ---
MAMMOGRAPHY - BILATERAL SCREENING REASON FOR EXAM: Female, 63 years old. Routine annual screening examination. PERTINENT HISTORY: Non-contributory. History of prior left ultrasound-guided breast biopsy. TECHNIQUE: Digital bilateral breast gretchen (3D mammographic acquisition) in the CC and MLO projections. 2-D mediolateral oblique (MLO) and craniocaudad (CC) views of both breasts were obtained. CAD: Full Field Digital Mammography with Computer Added Detection was performed. COMPARISON: Comparison is made with prior study dated November 27, 2022 and October 12, 2021. FINDINGS: Breast Composition: The breasts are almost entirely fatty. There are no dominant masses or suspicious calcifications. Stable bilateral fat containing axillary lymph nodes. No other significant abnormalities are identified. There has been no significant change since the prior study. BI/SCRN MAMM (CAD)W/GRETCHEN BILAT IMPRESSION: Stable bilateral screening mammogram. Yearly follow-up mammogram recommended. (A) ASSESSMENT CATEGORY: BIRADS Category 2: Benign. A letter regarding these results will be sent to the patient by the facility within 30 days. Approximately 10% of breast cancers are not detected by mammography. A normal mammogram should not delay biopsy of a clinically suspicious abnormality. [id number] Electronically Signed: Luis Antonio Cochran MD at 10:13 EDT ,
== END | disposition home or self-care (01) ==
LOC: OPBI 10:51
PROVIDERS: PCP Family Medicine; Referring Provider Family Medicine; Visit Provider Family Medicine
DX: Z12.31 Encounter for screening mammogram for malignant neoplasm of breast (principal)
CPT/HCPCS: 77063; 77067

== ENCOUNTER → 2025-05-13 | Outpatient (CLI) | payer OTHER, SELFPAY ==
--- NOTE | 2025-05-13 16:41 | BI_ITS ---
EXAM: SCRN MAMM (CAD)W/GRETCHEN BILAT DATE: 05/13/2025 CLINICAL HISTORY: F, Age 64 y/o , SCREENING TECHNIQUE: Procedure Code: [id number] Modality: MG Procedure: SCRN MAMM (CAD)W/GRETCHEN BILAT COMPARISON: Prior exam(s) dated 03/27/2024, 11/27/2022, 10/12/2021. FINDINGS: TISSUE DENSITY: The breasts are almost entirely fatty. Bilateral Breast Mammographic Findings: No significant masses, calcifications or other abnormalities are identified. BI/SCRN MAMM (CAD)W/GRETCHEN BILAT IMPRESSION: There is no mammographic evidence of malignancy. OVERALL FINAL ASSESSMENT BI-RADS 1: NEGATIVE. RECOMMENDATION: Routine annual follow-up in 1 Year Additional Recommendation none A letter with findings and recommendations will be mailed to the patient. Reading Location: [id number]
== END | disposition home or self-care (01) ==
LOC: OPBI 05-14 09:06
PROVIDERS: PCP Family Medicine; Referring Provider Family Medicine; Visit Provider Family Medicine
DX: Z12.31 Encounter for screening mammogram for malignant neoplasm of breast (principal)
CPT/HCPCS: 77063; 77067